=== PATIENT | male | born 1930 | race Caucasian/White ===

== ENCOUNTER 2017-11-13 16:11 | Inpatient (IN) ==
[2017-11-13] MEDS ORDERED: Acetaminophen 325 MG TABLET PO ONE (16:27)
[2017-11-13 16:51] LABS: Bilirubin,Urine Negative (Negative); Blood,Urine Negative (Negative); Clarity,Urine Clear (Clear); Color,Urine Yellow (Yellow); Glucose,Urine (UA) Normal (Normal); Ketones,Urine Negative (Negative); Leukocyte Esterase,Urine Negative (Negative); Nitrite,Urine Negative (Negative); PH,Urine 5.5 pH Units (5.0-8.0); Protein,Urine Trace mg/dL (Neg-Trace); Specific Gravity,Urine 1.019 (1.010-1.025); Urobilinogen,Urine Normal (Normal)
[2017-11-13 16:55] LABS: Bacteria,Urine None Seen per hpf (None-Few); Hyaline Casts,Urine None Seen per lpf (None-Few); Squamous Epithelial Cell,Urine Few per lpf (None-Few); WBC,Urine 0-3 per hpf (0-3)
[2017-11-13 17:04] LABS: Basophils % 0.4 %; Eosinophils # 0.4 K/mcL (0.0-0.6); Eosinophils % 3.2 %; Hematocrit 37.8 % (37.5-50.1); Hemoglobin 13.1 g/dL (12.9-16.9); Immature Granulocytes % 0.4 % (0-4); Immature Platelets 2.5 % (1.1-6.1); Lymphocytes # 1.4 K/mcL (0.6-4.6); Lymphocytes % 12.2 %; Mean Corpuscular HGB Conc 34.7 g/dL (31.6-35.5); Mean Corpuscular Hemoglobin 32.2 pg (28.0-33.3); Mean Corpuscular Volume 92.9 fL (83.0-100.0); Mean Platelet Volume 9.7 fL (9.4-12.4); Monocytes # 0.6 K/mcL (0.0-1.3); Monocytes % 5.4 %; Neutrophils # 8.8 K/mcL (1.6-8.9); Platelet Count 164 K/mcL (140-400); Red Blood Count 4.07 M/mcL (4.19-5.50); Red Cell Distribution Width 13.3 % (11.5-14.5); Segmented Neutrophils % 78.4 %
[2017-11-13 17:15] LABS: Calcium 8.6 mg/dL (8.6-10.3); Potassium 3.9 mEq/L (3.5-5.1)
[2017-11-13] MEDS ORDERED: 0.9 % Sodium Chloride 1,000 ML IVC ONE (17:31)
[2017-11-13] MEDS ORDERED: Levofloxacin 750 MG/150 ML 750 MG/150 ML BAG IVPB ONE (19:26)
[2017-11-13] MEDS ORDERED: Hydrocortisone Sodium Succ 100 MG/2 ML VIAL IVP ONE (19:52)
--- NOTE | 2017-11-13 20:18 | Emergency Department Note ---
Disposition Clinical Impression: Hyponatremia Pneumonia Qualifiers: Pneumonia type: due to unspecified organism Laterality: left Lung location: unspecified part of lung Qualified Code(s): J18.9 - Pneumonia, unspecified organism Chronic kidney disease Qualifiers: Chronic kidney disease stage: unspecified stage Qualified Code(s): N18.9 - Chronic kidney disease, unspecified Disposition: Admitted As Inpatient Condition: Fair Referrals: Leslie Mas MD [Primary Care Provider] - Forms: ED Satisfaction Letter General Adult HPI - General Chief complaint: ED Fever Stated complaint: Flu like symptoms Time Seen by Provider: 11/13/17 16:25 Source: patient Limitations: no limitations Nursing Notes Reviewed: Yes Vital Signs Reviewed: Yes - History of Present Illness HPI Narrative: 87-year-old male with a past medical history prostate cancer and chronic kidney disease. He has had approximate 48 hours of cough and fatigue. He is otherwise fairly healthy and was out shoveling snow discomfort couple of days ago. Family is in the room provides most medical history due to his fatigue. He has had a hospitalization in the past for pneumonia. He does admit to having a fever along with some nausea. Not currently vomiting. Pain Scale: 0 Improves with: nothing Worsens with: nothing Associated symptoms: Reports: denies other symptoms Treatments Prior to Arrival: none - Related Data Home Medications Medication Instructions Recorded Confirmed Isosorbide MONOnitrate (24 HR) 30 mg PO DAILY 05/03/16 11/05/17 [Imdur] Tamsulosin [Flomax] 0.4 mg PO DAILY PRN 06/20/17 11/05/17 Loperamide [Imodium] 2 mg PO DAILY PRN 09/16/17 11/05/17 Cholecalciferol (D-3) [Vitamin D] 1,000 unit PO DAILY 10/07/17 11/05/17 Previous Rx's Medication Instructions Recorded Abiraterone Acetate [Zytiga] 500 mg PO DAILY #60 tablet 10/07/17 predniSONE [PredniSONE] 5 mg PO BID #60 tablet 10/07/17 Allergies Allergy/AdvReac Type Severity Reaction Status Date / Time aspirin Allergy Unknown Diarrhea Verified 11/05/17 14:54 Penicillins Allergy Unknown Rash Verified 11/05/17 14:54 All systems ED: reviewed and negative except as stated. Constitutional: Reports: fever ENT ED: Denies: throat pain Respiratory: Reports: cough, dyspnea Gastrointestinal: Denies: abdominal pain Integumentary: Denies: rash Endocrine: Reports: fatigue Past Medical History - Past Medical History Medical history: Reports: cancer, hypertension, other Surgical history: Reports: non-contributory Psychiatric history: Reports: no psych history - Social History Smoking Status: Never smoker Smokeless Tobacco Status: No Alcohol use: Reports: heavy, recent Drug use: Reports: none Physical Exam - General Limitations: no limitations General appearance: alert, in no apparent distress - Head Head exam: atraumatic - Eye Eye exam: Present: normal appearance, PERRL - ENT ENT exam: normal exam, normal oropharynx - Neck Neck exam: Present: normal inspection - Chest Chest inspection: Present: normal inspection - Respiratory Respiratory exam: Present: other (coarse lung sounds). Absent: respiratory distress - Cardiovascular Cardiovascular exam: Present: regular rate, normal rhythm - Extremities Exam Extremities exam: Present: normal inspection - Neurological Exam Neurological exam: Present: alert - Skin Skin exam: Present: warm, dry Course Course Narrative: He is febrile this did improve after Tylenol. Chest x-ray does show a left lower lobe pneumonia. I have started Levaquin for treatment and obtain cultures. He does have chronic kidney disease but is no worse than normal. Mild hyponatremia from yesterday could be related to his pneumonia. I did go ahead and give stress dose steroids as he is chronically on 5 mg of prednisone. He has been accepted by the hospitalist for admission Vital Signs Temperature 102.8 F H 11/13/17 16:15 Pulse Rate 72 11/13/17 16:15 Respiratory Rate 18 11/13/17 16:15 Blood Pressure 158/90 11/13/17 16:15 O2 Sat by Pulse Oximetry 91 11/13/17 16:15 Temperature 102.1 F H 11/13/17 19:31 Pulse Rate 97 11/13/17 19:31 Respiratory Rate 17 11/13/17 19:31 Blood Pressure 106/55 11/13/17 19:31 O2 Sat by Pulse Oximetry 94 11/13/17 19:50 Oxygen Delivery Oxygen Delivery Room Air Medical Decision Making - Medical Records Medical records reviewed: Yes I reviewed the patient's medical records. - Lab Data Lab results reviewed: Yes I reviewed the patient's lab results. Result diagrams: 11/13/17 16:57 11/13/17 16:57 Lab Results 11/13/17 11/13/17 11/13/17 Range/Units 16:43 16:57 16:57 WBC 11.2 H (4.3-11.1) K/mcL RBC 4.07 L (4.19-5.50) M/mcL Hgb 13.1 (12.9-16.9) g/dL Hct 37.8 (37.5-50.1) % MCV 92.9 (83.0-100.0) fL MCH 32.2 (28.0-33.3) pg MCHC 34.7 (31.6-35.5) g/dL RDW 13.3 (11.5-14.5) % Plt Count 164 (140-400) K/mcL MPV 9.7 (9.4-12.4) fL Immature Gran % 0.4 (0-4) % Seg Neutrophils % 78.4 % Lymphocytes % 12.2 % Monocytes % 5.4 % Eosinophils % 3.2 % Basophils % 0.4 % Neutrophils # 8.8 (1.6-8.9) K/mcL Lymphocytes # 1.4 (0.6-4.6) K/mcL Monocytes # 0.6 (0.0-1.3) K/mcL Eosinophils # 0.4 (0.0-0.6) K/mcL Basophils # 0.0 (0.0-0.2) K/mcL Immature Plt Fraction 2.5 (1.1-6.1) % Sodium 128 L (136-145) mEq/L Potassium 3.9 (3.5-5.1) mEq/L Chloride 97 L (98-107) mEq/L Carbon Dioxide 25 (23-29) mEq/L BUN 30 H (8-23) mg/dL Creatinine 1.97 H (0.70-1.30) mg/dL Est GFR ( Amer) 39 L (> 60) Est GFR (Non-Af Amer) 32 L (> 60) BUN/Creatinine Ratio 15 (6-26) Glucose 132 H (70-105) mg/dL Calculated Osmolality 274 L (280-300) Lactic Acid (0.5-2.2) mmol/L Calcium 8.6 (8.6-10.3) mg/dL Urine Color Yellow (Yellow) Urine Clarity Clear (Clear) Urine pH 5.5 (5.0-8.0) pH Units Ur Specific Bigelow 1.019 (1.010-1.025) Urine Protein Trace (Neg-Trace) mg/dL Urine Glucose (UA) Normal (Normal) mg/dL Urine Ketones Negative (Negative) mg/dL Urine Blood Negative (Negative) Urine Nitrite Negative (Negative) Urine Bilirubin Negative (Negative) Urine Urobilinogen Normal (Normal) mg/dL Ur Leukocyte Esterase Negative (Negative) Urine Microscopic RBC 5-15 H (0-3) per hpf Urine Microscopic WBC 0-3 (0-3) per hpf Ur Squamous Epith Cells Few (None-Few) per lpf Urine Bacteria None Seen (None-Few) per hpf Hyaline Casts None Seen (None-Few) per lpf Ur Culture Indicated? NO (NO) Specimen Rejected 11/13/17 11/13/17 Range/Units 17:26 17:35 WBC (4.3-11.1) K/mcL RBC (4.19-5.50) M/mcL Hgb (12.9-16.9) g/dL Hct (37.5-50.1) % MCV (83.0-100.0) fL MCH (28.0-33.3) pg MCHC (31.6-35.5) g/dL RDW (11.5-14.5) % Plt Count (140-400) K/mcL MPV (9.4-12.4) fL Immature Gran % (0-4) % Seg Neutrophils % % Lymphocytes % % Monocytes % % Eosinophils % % Basophils % % Neutrophils # (1.6-8.9) K/mcL Lymphocytes # (0.6-4.6) K/mcL Monocytes # (0.0-1.3) K/mcL Eosinophils # (0.0-0.6) K/mcL Basophils # (0.0-0.2) K/mcL Immature Plt Fraction (1.1-6.1) % Sodium (136-145) mEq/L Potassium (3.5-5.1) mEq/L Chloride (98-107) mEq/L Carbon Dioxide (23-29) mEq/L BUN (8-23) mg/dL Creatinine (0.70-1.30) mg/dL Est GFR ( Amer) (> 60) Est GFR (Non-Af Amer) (> 60) BUN/Creatinine Ratio (6-26) Glucose (70-105) mg/dL Calculated Osmolality (280-300) Lactic Acid 1.1 (0.5-2.2) mmol/L Calcium (8.6-10.3) mg/dL Urine Color (Yellow) Urine Clarity (Clear) Urine pH (5.0-8.0) pH Units Ur Specific Bigelow (1.010-1.025) Urine Protein (Neg-Trace) mg/dL Urine Glucose (UA) (Normal) mg/dL Urine Ketones (Negative) mg/dL Urine Blood (Negative) Urine Nitrite (Negative) Urine Bilirubin (Negative) Urine Urobilinogen (Normal) mg/dL Ur Leukocyte Esterase (Negative) Urine Microscopic RBC (0-3) per hpf Urine Microscopic WBC (0-3) per hpf Ur Squamous Epith Cells (None-Few) per lpf Urine Bacteria (None-Few) per hpf Hyaline Casts (None-Few) per lpf Ur Culture Indicated? (NO) Specimen Rejected Hemolyzed - Radiology Data Radiology results reviewed: Yes I reviewed the patient's radiology results. - EKG Data EKG #1 EKG attestation: Yes I reviewed and interpreted this EKG. EKG shows normal: sinus rhythm Rate: normal Rhythm: NSR Hamer/QRS: normal When compared to previous EKG there are: no significant changes Interpretation: no acute changes Attestation Statement - Attestation Attestation: I examined this patient and my medical decision-making was reviewed with the Resident Physician, Dr. Borrego. I agree with the documented findings, disposition and treatment plan as described except to the extent set forth below. Patient is an 87-year-old white male who is brought into the emergency department today by his family with concerns for 2 day history of gradually worsening generalized fatigue associated with subjective fevers and chills and occasional dry cough that started last night around dinnertime. Family were concerned because by today patient was having difficulty ambulating and performing his ADLs secondary to his generalized weakness and normally he is fully active and daughter reports he was just out shoveling snow 2 days ago without difficulty. Patient appears clinically dehydrated and very weak on assessment but in no respiratory distress. With patient's physical exam findings as documented. Patient was febrile on arrival remainder of vitals were stable. Patient's EKG showed a normal sinus rhythm without acute ischemia. Patient's laboratory evaluation showed a negative flu swab, and remainder of labs were unremarkable, with the exception of a mild hyponatremia and chronic kidney disease. X-ray shows a left lower lobe pneumonia. Patient received IV fluids and lactate within normal limits. IV antibiotics were initiated and patient will be admitted for further evaluation and management
[2017-11-13] MEDS ORDERED: *HR* HYDROcodone/Acet 5/325 mg TABLET PO PRN (23:33)
[2017-11-13] MEDS ORDERED: Acetaminophen 325 MG TABLET PO PRN (23:33)
[2017-11-13] MEDS ORDERED: Naloxone 0.4 MG/ML INJ IVP PRN (23:33)
[2017-11-13] MEDS ORDERED: Ondansetron 4 MG/2 ML VIAL IVP PRN (23:33)
[2017-11-13] MEDS ORDERED: 0.9 % Sodium Chloride 1,000 ML IVC SCH (23:45)
--- NOTE | 2017-11-13 23:54 | Internal Med History&Physical ---
<Luis Temple - Last Filed: 11/14/17 00:26> Date of Encounter: 11/14/17 Time of Encounter: 22:00 Assessment and Plan (1) Community acquired pneumonia Current visit: Yes Status: Acute Acute CAP. Pt. and daughter report fever of 104F, chills, nausea, and SOB/ dyspnea in past 24 hours. Concern was for possible influenza which was negative. 1-View CXR today shows minimal airspace disease at left lung base, likely atelectasis versus scarring. Small focus of pneumonia remains in the differential. WBC slightly elevated at 11.2 on admission. Reports cough w/ sputum production. Blood cultures x2. Sputum culture. Legionella and strep pneumoniae antigens. IVPB azithromycin 500 mg daily and Rocephin 1,000 mg daily for infection coverage. Benadryl Q6 PRN d/t pts. allergy (rash) to penecillin and possible cross rxn. Supplemental O2 w/titration and SpO2 monitoring. DuoNebs Q6 PRN. Will adjust abx coverage based on culture results. Monitor pt. and f/u labs. Pt. discussed w/Dr. Skaggs who is in agreement w/plan of care. Pt. is at high risk for further morbidity d/t current sx r/t pneumonia dx, acute and generalized weakness, risk factors, and hx. Inpatient. Qualifiers: Laterality: left Lung location: lower lobe of lung Qualified Code(s): J18.1 - Lobar pneumonia, unspecified organism (2) Generalized weakness Current visit: Yes Status: Acute Acute generalized weakness and fatigue over the past 24-48 hours. Pts. daughter reports pt. was able to ambulate several days ago, but currently is too weak to w/o assistance. Falls/safety precautions w/2 assist. Bed rest w/bedside commode w/2 assist. (3) Hyponatremia Current visit: Yes Status: Acute Acute hyponatremia w/sodium of 128 on admission. Pt. receiving 0.9 NS IV fluids @ 75 mL/HR. Monitor sodium status in a.m. labs. (4) HTN (hypertension) Current visit: Yes Status: Chronic Hx of chronic HTN. Monitor pt. and VS. Continue pts. Imdur. Qualifiers: Hypertension type: essential hypertension Qualified Code(s): I10 - Essential (primary) hypertension (5) Prostate CA Current visit: Yes Status: Chronic Hx of chronic prostate cancer dx in 2010. Pt. states he sees Dr. Persaud and currently takes tx of Zytiga and prednisone. Continue Zytiga and increase steroids d/t current pneumonia. Pt. to f/u w/Dr. Persaud as OP (6) CKD (chronic kidney disease) stage 3, GFR 30-59 ml/min Current visit: Yes Status: Chronic Hx of CKD. Currently stage 3 w/GFR of 32 and creatinine of 1.97. Will use IV fluids judiciously and avoid nephrotoxins. Monitor I&O and daily weight. (7) DVT prophylaxis Current visit: Yes Status: Acute Heparin 5,000 units SQ Q12 for DVT prophylaxis. Monitor pt. for signs of bleeding. Internal Medicine - H&P: HPI Chief complaint: Fever/SOB/Dyspnea Admitted From: Emergency Dept Plans for Post Hospital Care: Home History of present illness: Mr. Aviles is a 87 year old male with medical hx of colon cancer in 1999, basal cell skin cancer, prostate cancer in 2010 with current treatment, and hypertension presents from the ED with chief complaint of fever, shortness of breath, generalized weakness and fatigue, and flu-like symptoms for the past 24 hours. Patient reports cough, fever, chills, and nausea but denies vomiting, chest pain, palpitations, headache, changes in vision, unusual bleeding, dizziness, lightheadedness, pre-syncope, or syncope. Past Med Surg Social Fam HX - Past Medical History Source: patient, old records reviewed, obtained from family Medical history: cancer (Colon in 1999, Basal cell skin carcinoma, Prostate in 2010 and receiving tx currently for), hypertension, renal disease, other Psychiatric history: no psych history - Past Surgical History Surgical History: colectomy - Social History Smoking Status: Former smoker Packs per day: 1.5 PPD - Reports quitting in 1970 Smokeless Tobacco Status: No Alcohol use: heavy Drug use: none Current living situation: Home, With Family Activity Level: Independent ambulation, Uses cane/walker Recent Out of Country Travel Within the Last 8 Weeks: No Exposure or Possible Exposure to Illness During Travel: No - Family History Father Race: Family Member Ethnicity: Non- Living Status: Age at : 91 Cause of : Old age Hx Family Cancer: Yes (Basal cell skin cancer) Mother Race: Family Member Ethnicity: Non- Living Status: Age at : 98 Cause of : Old age Hx Family Cancer: Yes (Colon) Sister Race: Family Member Ethnicity: Non- Living Status: Age at : 76 Cause of : [place] Hx Family Cardiac Disorders: Yes (DE) Internal Medicine - H&P: Meds Isosorbide MONOnitrate (24 HR) [Imdur] 30 mg PO DAILY 05/03/16 [History] Tamsulosin [Flomax] 0.4 mg PO DAILY PRN 06/20/17 [History] Loperamide [Imodium] 2 mg PO DAILY PRN 09/16/17 [History] Abiraterone Acetate [Zytiga] 500 mg PO DAILY #60 tablet 10/07/17 [Rx] Cholecalciferol (D-3) [Vitamin D] 1,000 unit PO DAILY 10/07/17 [History] predniSONE [PredniSONE] 5 mg PO BID #60 tablet 10/07/17 [Rx] 3 Allergy/AdvReac Type Severity Reaction Status Date / Time aspirin Allergy Unknown Diarrhea Verified 11/05/17 14:54 Penicillins Allergy Unknown Rash Verified 11/05/17 14:54 All Systems PM: A 10-system review of systems was performed and is negative for pertinent findings except as documented above in the HPI. - Constitutional Constitutional: as per HPI, chills, fatigue, fever(s), weakness, no night sweats - EENT Eyes: no change in vision, no discharge, no pain, no photophobia Ears: no ear discharge, no ear pain, no tinnitus Nose, mouth and throat: no dysphagia, no nasal discharge, no neck pain, no sore throat - Breasts Breasts: as per HPI - Cardiovascular Cardiovascular ROS IM: as per HPI, dyspnea, dyspnea on exertion, no chest pain, no diaphoresis, no lightheadedness, no palpitations, no syncope - Respiratory Respiratory: as per HPI, cough, dyspnea, dyspnea on exertion, no wheezing, no excessive phlegm production - Gastrointestinal Gastrointestinal: as per HPI, nausea, no abdominal pain, no diarrhea, no hematemesis, no hematochezia, no melena, no vomiting - Genitourinary Genitourinary ROS male: as per HPI - Musculoskeletal Musculoskeletal ROS IM: no numbness, no tingling - Integumentary Integumentary IM: no rash, no unusual bruising - Neurological Neurological ROS: no confusion, no convulsions, no focal weakness, no numbness, no tingling, no tremor(s) - Psychiatric Psychiatric: as per HPI - Endocrine Endocrine IM: as per HPI - Hematologic/Lymphatic Hematologic/Lymphatic: no easy bruising - Allergic/Immunologic Allergic/Immunologic: as per HPI - Constitutional Vitals: Temp Pulse Resp BP Pulse Ox 100.6 F H 99 16 116/72 94 11/13/17 22:40 11/13/17 22:00 11/13/17 22:40 11/13/17 22:40 11/13/17 22:00 General appearance: Present: cooperative, A&O X 3, pleasant, no acute distress, answers questions appropriately (Some require repeated attempts. Daughter states this is not his norm.) - Head Head exam: Present: atraumatic, normocephalic - Eye Eye exam: Present: PERRL, conjuntiva pink, sclera anicteric Pupils: Present: PERRL - ENT ENT exam: Present: normal exam - Neck Neck exam general surgery: Present: normal inspection, supple, trachea midline. Absent: lymphadenopathy - Respiratory Respiratory exam: Present: CTAB. Absent: accessory muscle use, rales, rhonchi, wheezes - Cardiovascular Cardiovascular exam: Present: RRR, +S1, +S2. Absent: diastolic murmur, gallop, rubs, systolic murmur - GI/Abdominal GI/Abdominal exam: Present: normal bowel sounds, soft, no peritoneal signs. Absent: distended, tenderness - Rectal Rectal exam: Present: deferred - Additional comments: exam deferred. - Extremities Exam Extremities exam: Present: warm, radial pulses palpable and symmetrical. Absent : calf tenderness, cyanotic, pedal edema - Neurological Exam Neurological exam: Present: CN II-XII intact, oriented X3, no focal deficits. Absent: pronater drift, facial droop, speech deficit - Psychiatric Psychiatric exam: Present: normal affect, normal mood Internal Med - H&P Results - Labs CBC & Chem 7: 11/13/17 16:57 11/13/17 16:57 - EKG Data EKG shows normal: sinus rhythm - EKG Data Prior EKG available for review: yes Interpretation IM: normal EKG EKG comments: 11/14/17 00:02 EKG dated 06/20/17 shows sinus rhythm with possible left atrial enlargement. Artifact. EKG dated 11/13/17 shows sinus rhythm and normal ECG. - Diagnostic Studies Chest x-ray Additional comments: Impressions Chest X-Ray 11/13/17 16:27 IMPRESSION: Minimal airspace disease left lung base, likely atelectasis versus scarring. Small focus of pneumonia remains in the differential. D/ / Robbin Arroyo MD / Robbin Arroyo MD Interpreting Provider: Robbin Arroyo MD <Jonathan Skaggs - Last Filed: 11/14/17 03:37> Date of Encounter: 11/14/17 Time of Encounter: 03:00 - Constitutional Constitutional: chills, fever(s), weakness - Respiratory Respiratory: cough, dyspnea, chest congestion, excessive phlegm production, change in phlegm color - Gastrointestinal Gastrointestinal: nausea Additional comments: decreased oral intake - Constitutional Vitals: Temp Pulse Resp BP Pulse Ox 97.9 F 97 16 115/62 98 11/14/17 00:02 11/14/17 00:02 11/14/17 00:02 11/14/17 00:02 11/14/17 00:02 General appearance: Present: A&O X 3, answers questions appropriately Exam: ill; non-toxic; looks dehydrated; no acute distress - Eye Eye exam: Present: PERRL. Absent: scleral icterus - ENT ENT exam: Present: mucous membranes dry, normal exam - Neck Neck exam general surgery: Present: supple - Respiratory Respiratory exam: Present: rales (left basilar crackles; coarse breath sounds). Absent: chest wall tenderness, respiratory distress, wheezes - Cardiovascular Cardiovascular exam: Present: RRR, +S1, +S2 - GI/Abdominal GI/Abdominal exam: Present: soft. Absent: tenderness - Extremities Exam Extremities exam: Present: warm, radial pulses palpable and symmetrical - Back Exam Back exam: Absent: CVA tenderness (L), CVA tenderness (R) - Skin Skin exam: Present: dry, warm. Absent: rash Internal Med - H&P Results - Labs CBC & Chem 7: 11/14/17 00:40 11/14/17 00:40 Labs: Short CBC 11/14/17 Range/Units 00:40 WBC 12.8 H (4.3-11.1) K/mcL Hgb 12.4 L (12.9-16.9) g/dL Hct 35.7 L (37.5-50.1) % Plt Count 153 (140-400) K/mcL Neutrophils # 11.0 H (1.6-8.9) K/mcL BMP 11/14/17 00:40 Sodium 128 L Potassium 3.9 Chloride 100 Carbon Dioxide 20 L BUN 31 H Creatinine 2.04 H Glucose 146 H Calcium 7.8 L Liver Function 11/14/17 Range/Units 00:40 Total Bilirubin 0.7 (0.3-1.0) mg/dL AST 16 (13-39) Units/L ALT 8 (7-52) Units/L Alkaline Phosphatase 50 (34-104) Units/L Albumin 3.0 L (3.5-5.7) g/dL - EKG Data -: EKG Interpreted by Myself EKG shows normal: sinus rhythm - Diagnostic Studies Chest x-ray Status: image reviewed by me Additional comments: suspect LLL process/infiltrate - Attending Attestation I discussed the patient [place], PMH, ROS, lab data, and exam findings with Marcellus Temple CNP. I then saw and examined patient independently as well. Patient history and exam very suspicious for pneumonia. Additionally, patient has been on chronic prednisone for ~ 6 weeks now. He feels extremely weak, fatigued, and has had some nausea over the last 24 hours. He denies vomiting or diarrhea. He has had very little oral intake, however. I worry that he is becoming adrenally insufficient and could lead to adrenal crisis if not addressed. I therefore requested ER to give Hydrocortisone IV upon admission, and I asked Marcellus to continue stress dose steroids for now in addition to IV antibiotics. Patient and daughter both report feeling much better since Hydrocortisone was given. As he improves from his pneumonia, I recommend slowly weaning his hydrocortisone down to his home Prednisone dosing. If necessary, Oncology will be consulted for any oncologic guidance or concerns. Other than my comments above and noted exam findings, I agree with Marcellus's assessment and plan.
[2017-11-14] MEDS ORDERED: Ipratropium/Albuterol Neb 3 ML IH PRN (00:16)
[2017-11-14 00:48] LABS: Basophils # 0.1 K/mcL (0.0-0.2); Basophils % 0.4 %; Eosinophils # 0.2 K/mcL (0.0-0.6); Eosinophils % 1.3 %; Hematocrit 35.7 % (37.5-50.1); Hemoglobin 12.4 g/dL (12.9-16.9); Immature Granulocytes % 0.5 % (0-4); Immature Platelets 2.6 % (1.1-6.1); Lymphocytes # 0.7 K/mcL (0.6-4.6); Lymphocytes % 5.4 %; Mean Corpuscular HGB Conc 34.7 g/dL (31.6-35.5); Mean Corpuscular Hemoglobin 32.1 pg (28.0-33.3); Mean Corpuscular Volume 92.5 fL (83.0-100.0); Mean Platelet Volume 9.8 fL (9.4-12.4); Monocytes # 0.9 K/mcL (0.0-1.3); Monocytes % 6.9 %; Platelet Count 153 K/mcL (140-400); Red Blood Count 3.86 M/mcL (4.19-5.50); Red Cell Distribution Width 13.4 % (11.5-14.5); Segmented Neutrophils % 85.5 %
[2017-11-14 01:06] LABS: Albumin/Globulin Ratio 1.2 (1.1-2.2); Bilirubin,Total 0.7 mg/dL (0.3-1.0); Calcium 7.8 mg/dL (8.6-10.3); Chol/HDL Ratio 5.3 (0-4.9); Globulin 2.6 g/dL (2.4-3.5); Magnesium 1.2 mg/dL (1.6-2.6); Potassium 3.9 mEq/L (3.5-5.1); Total Protein 5.6 g/dL (6.4-8.9)
[2017-11-14] MEDS: Azithromycin 500 MG in D5% in Water 250 ML IVPB SCH (01:32)
[2017-11-14] MEDS: Hydrocortisone Sodium Succ 100 MG/2 ML VIAL IVP SCH ×3 (01:33→15:40)
[2017-11-14] MEDS: cefTRIAXone 1,000 MG in Water for inj. (sterile) 10 ML IVP SCH (04:19)
[2017-11-14] MEDS: *HR* Heparin 5,000 UNIT/ML VIAL SQ SCH ×2 (04:20→17:30)
[2017-11-14] MEDS ORDERED: ABIRATERONE ACETATE 500 MG PO SCH (09:00)
[2017-11-14] MEDS: ABIRATERONE ACETATE 250 MG PO SCH (15:40)
--- NOTE | 2017-11-14 18:26 | Internal Med Progress Note ---
Date of Encounter: 11/14/17 Time of Encounter: 18:23 - Assessment and plan (1) Community acquired pneumonia Current Visit: Yes Status: Acute Assessment and plan: At home had fever of 104F, chills, nausea, and SOB/dyspnea in past 24 hours. Concern was for possible influenza which was negative. 1-View CXR showed minimal airspace disease at left lung base, likely atelectasis versus scarring. Small focus of pneumonia remains in the differential. WBC slightly elevated at 11.2 on admission. Reports cough w/sputum production. Blood cultures x2. Sputum culture. Legionella and strep pneumoniae antigens. IVPB azithromycin 500 mg daily and Rocephin 1,000 mg daily for infection coverage. Supplemental O2 w/ titration and SpO2 monitoring. DuoNebs Q6 PRN. Will adjust abx coverage based on culture results. Has been on chronic prednisone for 6 weeks. SoluCortef to avoid adrenal crisis. - will slowly wean down to raza ePrednisone dosing. Will consider a Oncology consult if there are any concerns during this process. Qualifiers: Laterality: left Lung location: lower lobe of lung Qualified Code(s): J18.1 - Lobar pneumonia, unspecified organism (2) CKD (chronic kidney disease) stage 3, GFR 30-59 ml/min Current Visit: Yes Status: Chronic Assessment and plan: Reviewing patient's records, it appears his baseline creatinine is 2.1-2.4. Renally dose medications Recheck BMP in AM Fluids are given cautiously (3) Generalized weakness Current Visit: Yes Status: Acute Assessment and plan: PT/OT (4) HTN (hypertension) Current Visit: Yes Status: Chronic Qualifiers: Hypertension type: essential hypertension Qualified Code(s): I10 - Essential (primary) hypertension (5) Hyponatremia Current Visit: Yes Status: Acute Assessment and plan: unchanged at 128. Will continue gentle IV fluid hydration and recheck in AM. If no improvement, may need renal consult. (6) Prostate CA Current Visit: Yes Status: Chronic Assessment and plan: Diagnosed in 2010. Pt. states he sees Dr. Persaud and currently takes tx of Zytiga and prednisone. Continue Zytiga and increase steroids d/t current pneumonia. Pt. to f/u w/Dr. Persaud as OP (7) DVT prophylaxis Current Visit: Yes Status: Acute - Subjective Interval history: No complaints, no acute events. - Constitutional Vitals: Temp Pulse Resp BP Pulse Ox 97.8 F 80 20 168/79 97 11/14/17 15:59 11/14/17 15:59 11/14/17 15:59 11/14/17 15:59 11/14/17 15:59 General appearance: Present: A&O X 3, answers questions appropriately Exam: - Head Head exam: Present: atraumatic, normocephalic - Eye Eye exam: Present: PERRL, conjuntiva pink, sclera anicteric Pupils: Present: PERRL - ENT ENT exam: Present: normal exam - Neck Neck exam general surgery: Present: normal inspection, supple, trachea midline. Absent: lymphadenopathy - Respiratory Respiratory exam: Present: CTAB. Absent: accessory muscle use, rales, rhonchi, wheezes - Cardiovascular Cardiovascular exam: Present: RRR, +S1, +S2. Absent: diastolic murmur, gallop, rubs, systolic murmur - GI/Abdominal GI/Abdominal exam: Present: normal bowel sounds, soft, no peritoneal signs. Absent: distended, tenderness - Rectal Rectal exam: Present: deferred - Additional comments: exam deferred. - Extremities Exam Extremities exam: Present: warm, radial pulses palpable and symmetrical. Absent : calf tenderness, cyanotic, pedal edema - Neurological Exam Neurological exam: Present: CN II-XII intact, oriented X3, no focal deficits. Absent: pronater drift, facial droop, speech deficit - Psychiatric Psychiatric exam: Present: normal affect, normal mood Internal Medicine: Result - Labs CBC & Chem 7: 11/14/17 00:40 11/14/17 00:40 Labs: Short CBC 11/14/17 Range/Units 00:40 WBC 12.8 H (4.3-11.1) K/mcL Hgb 12.4 L (12.9-16.9) g/dL Hct 35.7 L (37.5-50.1) % Plt Count 153 (140-400) K/mcL Neutrophils # 11.0 H (1.6-8.9) K/mcL BMP 11/14/17 00:40 Sodium 128 L Potassium 3.9 Chloride 100 Carbon Dioxide 20 L BUN 31 H Creatinine 2.04 H Glucose 146 H Calcium 7.8 L Liver Function 01/18/18 Range/Units 00:40 Total Bilirubin 0.7 (0.3-1.0) mg/dL AST 16 (13-39) Units/L ALT 8 (7-52) Units/L Alkaline Phosphatase 50 (34-104) Units/L Albumin 3.0 L (3.5-5.7) g/dL Consult Discharge Plan - Plan Referrals: Leslie Mas MD [Primary Care Provider] -
[2017-11-14] MEDS ORDERED: 0.9 % Sodium Chloride 1,000 ML IVC SCH (18:34)
[2017-11-15] MEDS: Azithromycin 500 MG in D5% in Water 250 ML IVPB SCH ×2 (00:43→23:54)
[2017-11-15] MEDS: Hydrocortisone Sodium Succ 100 MG/2 ML VIAL IVP SCH ×2 (00:45→18:30)
[2017-11-15] MEDS: cefTRIAXone 1,000 MG in Water for inj. (sterile) 10 ML IVP SCH (02:56)
[2017-11-15] MEDS: *HR* Heparin 5,000 UNIT/ML VIAL SQ SCH ×2 (06:43→18:30)
[2017-11-15 07:27] LABS: Albumin 3.1 g/dL (3.5-5.7); Albumin/Globulin Ratio 1.1 (1.1-2.2); Bilirubin,Total 0.4 mg/dL (0.3-1.0); Globulin 2.9 g/dL (2.4-3.5); Potassium 3.4 mEq/L (3.5-5.1)
[2017-11-15] MEDS ORDERED: *HR* LORazepam 2 MG/ML VIAL IVP ONE (08:21)
[2017-11-15] MEDS ORDERED: Water for inj. (sterile) 10 ML IV ONE (08:25)
[2017-11-15 08:30] LABS: Basophils % 0.1 %; Hematocrit 37.7 % (37.5-50.1); Hemoglobin 13.1 g/dL (12.9-16.9); Immature Granulocytes % 0.5 % (0-4); Lymphocytes # 0.7 K/mcL (0.6-4.6); Lymphocytes % 6.4 %; Mean Corpuscular HGB Conc 34.7 g/dL (31.6-35.5); Mean Corpuscular Hemoglobin 31.8 pg (28.0-33.3); Mean Corpuscular Volume 91.5 fL (83.0-100.0); Mean Platelet Volume 10.4 fL (9.4-12.4); Monocytes # 0.6 K/mcL (0.0-1.3); Neutrophils # 9.7 K/mcL (1.6-8.9); Platelet Count 174 K/mcL (140-400); Red Blood Count 4.12 M/mcL (4.19-5.50); Red Cell Distribution Width 13.5 % (11.5-14.5)
[2017-11-15] MEDS ORDERED: ABIRATERONE ACETATE 250 MG PO SCH (09:00)
[2017-11-15] MEDS: ABIRATERONE ACETATE 250 MG PO SCH ×2 (14:38→23:56)
--- NOTE | 2017-11-15 22:00 | Internal Med Progress Note ---
Date of Encounter: 11/15/17 Time of Encounter: 11:07 - Assessment and plan (1) Encephalopathy acute Current Visit: Yes Status: Acute Assessment and plan: Likely multifactorial with steroid usage, sepsis, change in enviornment. I verified with BERTRANDA and his daughters, this is indeed not his typical behavior. We have discussed continuous redirecting of patient to allow medical treatment. - Taper steroids - Continue treatment of pneumonia - no longer septic at this moment. Blood cultures pending. - Continue redirecting patient, lights off prior to 9 pm (his usual sleeping schedule) (2) Generalized weakness Current Visit: Yes Status: Acute Assessment and plan: Possibly infection vs adrenal crisis Stress dose with Solu Cortef since he is a chronic steroid patient. Will taper slowly. Continue Rocephin/Azithromycin (3) Sepsis Current Visit: Yes Status: Acute Assessment and plan: Secondary to CAP. 104 F temperature at home, Leukocytosis, occasionally tachycardic (though likely from agitation) Sepsis now resolved, but blood cultures still pending. - Continue Rocephin and Azithromycin - Follow-up respiratory cultures Qualifiers: Sepsis type: sepsis due to unspecified organism Qualified Code(s): A41.9 - Sepsis, unspecified organism (4) Community acquired pneumonia Current Visit: Yes Status: Acute Assessment and plan: At home had fever of 104F, chills, nausea, and SOB/dyspnea in past 24 hours. Concern was for possible influenza which was negative. 1-View CXR showed minimal airspace disease at left lung base, likely atelectasis versus scarring. Small focus of pneumonia remains in the differential. WBC slightly elevated at 11.2 on admission. Reports cough w/sputum production. Blood cultures x2. Sputum culture. Legionella and strep pneumoniae antigens. IVPB azithromycin 500 mg daily and Rocephin 1,000 mg daily for infection coverage. Supplemental O2 w/ titration and SpO2 monitoring. DuoNebs Q6 PRN. Will adjust abx coverage based on culture results. Has been on chronic prednisone for 6 weeks. SoluCortef to avoid adrenal crisis. - will slowly wean down to home Prednisone dosing. Will consider a Oncology consult if there are any concerns during this process. Qualifiers: Laterality: left Lung location: lower lobe of lung Qualified Code(s): J18.1 - Lobar pneumonia, unspecified organism (5) CKD (chronic kidney disease) stage 3, GFR 30-59 ml/min Current Visit: Yes Status: Chronic Assessment and plan: Reviewing patient's records, it appears his baseline creatinine is 2.1-2.4. Renally dose medications Recheck BMP in AM Fluids are given cautiously (6) HTN (hypertension) Current Visit: Yes Status: Chronic Qualifiers: Hypertension type: essential hypertension Qualified Code(s): I10 - Essential (primary) hypertension (7) Hyponatremia Current Visit: Yes Status: Acute Assessment and plan: Resolving with gentle IV fluid hydration and recheck in AM. (8) Prostate CA Current Visit: Yes Status: Chronic Assessment and plan: Diagnosed in 2010. Pt. states he sees Dr. Persaud and currently takes tx of Zytiga and prednisone. Continue Zytiga and increase steroids d/t current pneumonia. Pt. to f/u w/Dr. Persaud as OP (9) DVT prophylaxis Current Visit: Yes Status: Acute - Subjective Interval history: Patient was doing well yesterday. Today this AM patient became more confused and agitated. Please see nursing notes for further detail. Threatened to leave multiple times. Threatened to remove IV multiple times. and two daughters have arrived and are at bedside. Patient still confused but less agitated. - Constitutional Vitals: Temp Pulse Resp BP Pulse Ox 97.8 F 90 16 162/85 97 11/15/17 19:28 11/15/17 19:28 11/15/17 19:28 11/15/17 19:28 11/15/17 19:28 Exam: General appearance: Present: Confused, agitated Exam: - Head Head exam: Present: atraumatic, normocephalic - Eye Eye exam: Present: PERRL, conjuntiva pink, sclera anicteric Pupils: Present: PERRL - ENT ENT exam: Present: normal exam - Neck Neck exam general surgery: Present: normal inspection, supple, trachea midline. Absent: lymphadenopathy - Respiratory Respiratory exam: Present: CTAB. Absent: accessory muscle use, rales, rhonchi, wheezes - Cardiovascular Cardiovascular exam: Present: RRR, +S1, +S2. Absent: diastolic murmur, gallop, rubs, systolic murmur - GI/Abdominal GI/Abdominal exam: Present: normal bowel sounds, soft, no peritoneal signs. Absent: distended, tenderness - Rectal Rectal exam: Present: deferred - Additional comments: exam deferred. - Extremities Exam Extremities exam: Present: warm, radial pulses palpable and symmetrical. Absent : calf tenderness, cyanotic, pedal edema - Neurological Exam Neurological exam: Present: CN II-XII intact, oriented X3, no focal deficits. Absent: pronater drift, facial droop, speech deficit - Psychiatric Psychiatric exam: Present: normal affect, normal mood Internal Medicine: Result - Labs CBC & Chem 7: 11/15/17 06:39 11/15/17 06:39 Labs: Short CBC 11/15/17 Range/Units 06:39 WBC 11.0 (4.3-11.1) K/mcL Hgb 13.1 (12.9-16.9) g/dL Hct 37.7 (37.5-50.1) % Plt Count 174 (140-400) K/mcL Neutrophils # 9.7 H (1.6-8.9) K/mcL BMP 11/15/17 06:39 Sodium 135 L Potassium 3.4 L Chloride 105 Carbon Dioxide 20 L BUN 35 H Creatinine 1.96 H Glucose 158 H Calcium 8.0 L Liver Function 11/15/17 Range/Units 06:39 Total Bilirubin 0.4 (0.3-1.0) mg/dL AST 20 (13-39) Units/L ALT 11 (7-52) Units/L Alkaline Phosphatase 48 (34-104) Units/L Albumin 3.1 L (3.5-5.7) g/dL - VTE Documentation of Mechanical Device: Intermittent pneumatic compression device Consult Discharge Plan - Plan Referrals: Leslie Mas MD [Primary Care Provider] -
[2017-11-16] MEDS: cefTRIAXone 1,000 MG in Water for inj. (sterile) 10 ML IVP SCH (01:13)
[2017-11-16 03:30] LABS: Basophils % 0.3 %; Eosinophils % 0.1 %; Hematocrit 35.5 % (37.5-50.1); Hemoglobin 12.3 g/dL (12.9-16.9); Immature Granulocytes % 0.4 % (0-4); Lymphocytes # 1.1 K/mcL (0.6-4.6); Lymphocytes % 9.6 %; Mean Corpuscular HGB Conc 34.6 g/dL (31.6-35.5); Mean Corpuscular Hemoglobin 32.4 pg (28.0-33.3); Mean Corpuscular Volume 93.4 fL (83.0-100.0); Mean Platelet Volume 9.9 fL (9.4-12.4); Monocytes # 0.5 K/mcL (0.0-1.3); Monocytes % 4.7 %; Neutrophils # 9.9 K/mcL (1.6-8.9); Platelet Count 184 K/mcL (140-400); Red Cell Distribution Width 13.7 % (11.5-14.5); Segmented Neutrophils % 84.9 %
[2017-11-16 03:41] LABS: Albumin 3.1 g/dL (3.5-5.7); Albumin/Globulin Ratio 1.1 (1.1-2.2); Bilirubin,Total 0.4 mg/dL (0.3-1.0); Calcium 7.8 mg/dL (8.6-10.3); Globulin 2.7 g/dL (2.4-3.5); Potassium 3.9 mEq/L (3.5-5.1); Total Protein 5.8 g/dL (6.4-8.9)
[2017-11-16] MEDS: *HR* Heparin 5,000 UNIT/ML VIAL SQ SCH ×2 (06:43→18:09)
--- NOTE | 2017-11-16 06:43 | Electrocardiograph Report ---
[address] [address] Test Date: 2017-11-13 Pat Name: Rajeev Aviles Department: 102 Room: [facility] Gender: M [employer] Administrator: : [id number] Requested By: Александр Garcia Order Number: [id number] Reading MD: Bert Dillon MD Measurements Intervals [place] Rate: 73 P: 7 AR: 165 QRS: -2 QRSD: 74 T: 28 QT: 321 QTc: 348 Interpretive Statements SINUS RHYTHM Electronically Signed On 11-16-2017 6:42:17 EST by Bert Dillon MD
[2017-11-16] MEDS: Hydrocortisone Sodium Succ 100 MG/2 ML VIAL IVP SCH ×4 (06:44→23:35)
--- NOTE | 2017-11-16 18:31 | Internal Med Progress Note ---
Date of Encounter: 11/16/17 Time of Encounter: 18:29 - Assessment and plan (1) Encephalopathy acute Current Visit: Yes Status: Acute Assessment and plan: Likely multifactorial with steroid usage, sepsis, change in enviornment. I verified with BERTRANDA and his daughters, this is indeed not his typical behavior. We have discussed continuous redirecting of patient to allow medical treatment. - Taper steroids - Continue treatment of pneumonia - no longer septic at this moment. Blood cultures pending. - Continue redirecting patient, lights off prior to 9 pm (his usual sleeping schedule) Resolved (2) Generalized weakness Current Visit: Yes Status: Acute Assessment and plan: Possibly infection vs adrenal crisis Stress dose with Solu Cortef since he is a chronic steroid patient. Will taper slowly. Continue Rocephin/Azithromycin (3) Sepsis Current Visit: Yes Status: Acute Assessment and plan: Secondary to CAP. 104 F temperature at home, Leukocytosis, occasionally tachycardic (though likely from agitation) Sepsis now resolved, but blood cultures still pending. - Continue Rocephin and Azithromycin - Follow-up respiratory cultures Qualifiers: Sepsis type: sepsis due to unspecified organism Qualified Code(s): A41.9 - Sepsis, unspecified organism (4) Community acquired pneumonia Current Visit: Yes Status: Acute Assessment and plan: At home had fever of 104F, chills, nausea, and SOB/dyspnea in past 24 hours. Concern was for possible influenza which was negative. 1-View CXR showed minimal airspace disease at left lung base, likely atelectasis versus scarring. Small focus of pneumonia remains in the differential. WBC slightly elevated at 11.2 on admission. Reports cough w/sputum production. Blood cultures x2. Sputum culture. Legionella and strep pneumoniae antigens. IVPB azithromycin 500 mg daily and Rocephin 1,000 mg daily for infection coverage. Supplemental O2 w/ titration and SpO2 monitoring. DuoNebs Q6 PRN. Will adjust abx coverage based on culture results. Has been on chronic prednisone for 6 weeks. SoluCortef to avoid adrenal crisis. - will slowly wean down to home Prednisone dosing. Will consider a Oncology consult if there are any concerns during this process. Qualifiers: Laterality: left Lung location: lower lobe of lung Qualified Code(s): J18.1 - Lobar pneumonia, unspecified organism (5) CKD (chronic kidney disease) stage 3, GFR 30-59 ml/min Current Visit: Yes Status: Chronic Assessment and plan: Reviewing patient's records, it appears his baseline creatinine is 2.1-2.4. Renally dose medications Recheck BMP in AM Fluids are given cautiously (6) HTN (hypertension) Current Visit: Yes Status: Chronic Qualifiers: Hypertension type: essential hypertension Qualified Code(s): I10 - Essential (primary) hypertension (7) Hyponatremia Current Visit: Yes Status: Acute Assessment and plan: Resolving with gentle IV fluid hydration and recheck in AM. (8) Prostate CA Current Visit: Yes Status: Chronic Assessment and plan: Diagnosed in 2010. Pt. states he sees Dr. Persaud and currently takes tx of Zytiga and prednisone. Continue Zytiga and increase steroids d/t current pneumonia. Pt. to f/u w/Dr. Persaud as OP (9) DVT prophylaxis Current Visit: Yes Status: Acute - Subjective Interval history: 11/15: patient became more confused and agitated. Please see nursing notes for further detail. Threatened to leave multiple times. Threatened to remove IV multiple times. and two daughters have arrived and are at bedside. Patient still confused but less agitated. 11/16: calm and cooperative, willing to stay and finish treatment. - Constitutional Vitals: Temp Pulse Resp BP Pulse Ox 97.9 F 61 14 132/74 97 11/16/17 16:28 11/16/17 16:28 11/16/17 16:28 11/16/17 16:28 11/16/17 16:28 General appearance: Present: A&O X 3, answers questions appropriately - Head Head exam: Present: atraumatic, normocephalic - Eye Eye exam: Present: PERRL, conjuntiva pink, sclera anicteric Pupils: Present: PERRL - Neck Neck exam general surgery: Present: supple, trachea midline. Absent: lymphadenopathy - Respiratory Respiratory exam: Present: CTAB. Absent: accessory muscle use, rales, rhonchi, wheezes - Cardiovascular Cardiovascular exam: Present: RRR, +S1, +S2. Absent: diastolic murmur, gallop, rubs, systolic murmur - GI/Abdominal GI/Abdominal exam: Present: normal bowel sounds, soft, no peritoneal signs. Absent: distended, tenderness - Extremities Exam Extremities exam: Present: warm, radial pulses palpable and symmetrical. Absent : calf tenderness, cyanotic, pedal edema - Neurological Exam Neurological exam: Present: CN II-XII intact, oriented X3, no focal deficits. Absent: pronater drift, facial droop, speech deficit - Skin Skin exam: Present: dry, intact Internal Medicine: Result - Labs CBC & Chem 7: 11/16/17 03:12 11/16/17 03:12 Labs: Short CBC 11/16/17 Range/Units 03:12 WBC 11.6 H (4.3-11.1) K/mcL Hgb 12.3 L (12.9-16.9) g/dL Hct 35.5 L (37.5-50.1) % Plt Count 184 (140-400) K/mcL Neutrophils # 9.9 H (1.6-8.9) K/mcL BMP 11/16/17 03:12 Sodium 137 Potassium 3.9 Chloride 107 Carbon Dioxide 23 BUN 33 H Creatinine 2.05 H Glucose 142 H Calcium 7.8 L Liver Function 11/16/17 Range/Units 03:12 Total Bilirubin 0.4 (0.3-1.0) mg/dL AST 22 (13-39) Units/L ALT 11 (7-52) Units/L Alkaline Phosphatase 44 (34-104) Units/L Albumin 3.1 L (3.5-5.7) g/dL - VTE Documentation of Mechanical Device: Intermittent pneumatic compression device Consult Discharge Plan - Plan Referrals: Leslie Mas MD [Primary Care Provider] -
[2017-11-16] MEDS: Azithromycin 500 MG in D5% in Water 250 ML IVPB SCH (23:34)
[2017-11-16] MEDS: ABIRATERONE ACETATE 250 MG PO SCH (23:51)
[2017-11-17] MEDS ORDERED: Azithromycin 500 MG VIAL IVPB ONE (00:04)
[2017-11-17] MEDS: cefTRIAXone 1,000 MG in Water for inj. (sterile) 10 ML IVP SCH (01:17)
[2017-11-17 05:08] LABS: Basophils % 0.2 %; Eosinophils % 0.2 %; Hematocrit 32.5 % (37.5-50.1); Hemoglobin 11.3 g/dL (12.9-16.9); Immature Granulocytes % 0.4 % (0-4); Lymphocytes # 0.9 K/mcL (0.6-4.6); Lymphocytes % 9.8 %; Mean Corpuscular HGB Conc 34.8 g/dL (31.6-35.5); Mean Corpuscular Hemoglobin 32.2 pg (28.0-33.3); Mean Corpuscular Volume 92.6 fL (83.0-100.0); Mean Platelet Volume 10.2 fL (9.4-12.4); Monocytes # 0.6 K/mcL (0.0-1.3); Neutrophils # 7.9 K/mcL (1.6-8.9); Platelet Count 169 K/mcL (140-400); Red Blood Count 3.51 M/mcL (4.19-5.50); Red Cell Distribution Width 13.6 % (11.5-14.5); Segmented Neutrophils % 83.4 %
[2017-11-17 05:12] LABS: Albumin 2.9 g/dL (3.5-5.7); Albumin/Globulin Ratio 1.2 (1.1-2.2); Bilirubin,Total 0.4 mg/dL (0.3-1.0); Calcium 7.8 mg/dL (8.6-10.3); Globulin 2.5 g/dL (2.4-3.5); Potassium 3.7 mEq/L (3.5-5.1); Total Protein 5.4 g/dL (6.4-8.9)
[2017-11-17] MEDS: Hydrocortisone Sodium Succ 100 MG/2 ML VIAL IVP SCH ×2 (06:55→18:01)
[2017-11-17] MEDS: *HR* Heparin 5,000 UNIT/ML VIAL SQ SCH ×2 (06:55→18:02)
[2017-11-17] MEDS: ABIRATERONE ACETATE 250 MG PO SCH (22:40)
[2017-11-17] MEDS: Azithromycin 500 MG in D5% in Water 250 ML IVPB SCH (22:41)
--- NOTE | 2017-11-18 00:08 | Internal Med Progress Note ---
Date of Encounter: 11/18/17 Time of Encounter: 13:06 - Assessment and plan (1) Generalized weakness Current Visit: Yes Status: Acute Assessment and plan: Possibly infection vs adrenal crisis Stress dose with Solu Cortef since he is a chronic steroid patient. Will taper slowly. Continue Rocephin/Azithromycin (2) Sepsis Current Visit: Yes Status: Acute Assessment and plan: Secondary to CAP. 104 F temperature at home, Leukocytosis, occasionally tachycardic (though likely from agitation) Sepsis now resolved, but blood cultures still pending. - Continue Rocephin and Azithromycin - Follow-up respiratory cultures Qualifiers: Sepsis type: sepsis due to unspecified organism Qualified Code(s): A41.9 - Sepsis, unspecified organism (3) Community acquired pneumonia Current Visit: Yes Status: Acute Assessment and plan: At home had fever of 104F, chills, nausea, and SOB/dyspnea in past 24 hours. Concern was for possible influenza which was negative. 1-View CXR showed minimal airspace disease at left lung base, likely atelectasis versus scarring. Small focus of pneumonia remains in the differential. WBC slightly elevated at 11.2 on admission. Reports cough w/sputum production. Blood cultures x2. Sputum culture. Legionella and strep pneumoniae antigens. IVPB azithromycin 500 mg daily and Rocephin 1,000 mg daily for infection coverage. Supplemental O2 w/ titration and SpO2 monitoring. DuoNebs Q6 PRN. Will adjust abx coverage based on culture results. Has been on chronic prednisone for 6 weeks. SoluCortef to avoid adrenal crisis. - will slowly wean down to home Prednisone dosing. Will consider a Oncology consult if there are any concerns during this process. Qualifiers: Laterality: left Lung location: lower lobe of lung Qualified Code(s): J18.1 - Lobar pneumonia, unspecified organism (4) Encephalopathy acute Current Visit: Yes Status: Resolved Assessment and plan: Likely multifactorial with steroid usage, sepsis, change in enviornment. I verified with POA and his daughters, this is indeed not his typical behavior. We have discussed continuous redirecting of patient to allow medical treatment. - Taper steroids - Continue treatment of pneumonia - no longer septic at this moment. Blood cultures pending. - Continue redirecting patient, lights off prior to 9 pm (his usual sleeping schedule) Resolved (5) CKD (chronic kidney disease) stage 3, GFR 30-59 ml/min Current Visit: Yes Status: Chronic Assessment and plan: Reviewing patient's records, it appears his baseline creatinine is 2.1-2.4. Renally dose medications Recheck BMP in AM Fluids are given cautiously (6) HTN (hypertension) Current Visit: Yes Status: Chronic Qualifiers: Hypertension type: essential hypertension Qualified Code(s): I10 - Essential (primary) hypertension (7) Hyponatremia Current Visit: Yes Status: Acute Assessment and plan: Resolving with gentle IV fluid hydration and recheck in AM. (8) Prostate CA Current Visit: Yes Status: Chronic Assessment and plan: Diagnosed in 2010. Pt. states he sees Dr. Persaud and currently takes tx of Zytiga and prednisone. Continue Zytiga and increase steroids d/t current pneumonia. Pt. to f/u w/Dr. Persaud as OP (9) DVT prophylaxis Current Visit: Yes Status: Acute - Subjective Interval history: 11/15: patient became more confused and agitated. Please see nursing notes for further detail. Threatened to leave multiple times. Threatened to remove IV multiple times. and two daughters have arrived and are at bedside. Patient still confused but less agitated. 11/16: calm and cooperative, willing to stay and finish treatment. Since then has been cooperative - Constitutional Vitals: Temp Pulse Resp BP Pulse Ox 97.7 F 62 16 159/92 97 11/17/17 19:20 11/17/17 19:20 11/17/17 19:20 11/17/17 19:20 11/17/17 19:20 General appearance: Present: A&O X 3, answers questions appropriately - Head Head exam: Present: atraumatic, normocephalic - Eye Eye exam: Present: PERRL, conjuntiva pink, sclera anicteric Pupils: Present: PERRL - Neck Neck exam general surgery: Present: supple, trachea midline. Absent: lymphadenopathy - Respiratory Respiratory exam: Present: CTAB. Absent: accessory muscle use, rales, rhonchi, wheezes - Cardiovascular Cardiovascular exam: Present: RRR, +S1, +S2. Absent: diastolic murmur, gallop, rubs, systolic murmur - GI/Abdominal GI/Abdominal exam: Present: normal bowel sounds, soft, no peritoneal signs. Absent: distended, tenderness - Extremities Exam Extremities exam: Present: warm, radial pulses palpable and symmetrical. Absent : calf tenderness, cyanotic, pedal edema - Neurological Exam Neurological exam: Present: CN II-XII intact, oriented X3, no focal deficits. Absent: pronater drift, facial droop, speech deficit - Skin Skin exam: Present: dry, intact Internal Medicine: Result - Labs CBC & Chem 7: 11/17/17 04:38 11/17/17 04:38 Labs: Short CBC 11/17/17 Range/Units 04:38 WBC 9.5 (4.3-11.1) K/mcL Hgb 11.3 L (12.9-16.9) g/dL Hct 32.5 L (37.5-50.1) % Plt Count 169 (140-400) K/mcL Neutrophils # 7.9 (1.6-8.9) K/mcL BMP 11/17/17 04:38 Sodium 137 Potassium 3.7 Chloride 105 Carbon Dioxide 23 BUN 40 H Creatinine 2.31 H Glucose 152 H Calcium 7.8 L Liver Function 11/17/17 Range/Units 04:38 Total Bilirubin 0.4 (0.3-1.0) mg/dL AST 18 (13-39) Units/L ALT 12 (7-52) Units/L Alkaline Phosphatase 38 (34-104) Units/L Albumin 2.9 L (3.5-5.7) g/dL - VTE Documentation of Mechanical Device: Intermittent pneumatic compression device Consult Discharge Plan - Plan Referrals: Leslie Mas MD [Primary Care Provider] -
[2017-11-18] MEDS: cefTRIAXone 1,000 MG in Water for inj. (sterile) 10 ML IVP SCH (01:40)
[2017-11-18 05:35] LABS: Basophils % 0.2 %; Eosinophils # 0.1 K/mcL (0.0-0.6); Hematocrit 32.3 % (37.5-50.1); Hemoglobin 11.3 g/dL (12.9-16.9); Immature Granulocytes % 0.3 % (0-4); Lymphocytes # 1.5 K/mcL (0.6-4.6); Lymphocytes % 16.4 %; Mean Corpuscular Hemoglobin 32.1 pg (28.0-33.3); Mean Corpuscular Volume 91.8 fL (83.0-100.0); Mean Platelet Volume 10.4 fL (9.4-12.4); Monocytes # 0.8 K/mcL (0.0-1.3); Monocytes % 8.2 %; Neutrophils # 6.7 K/mcL (1.6-8.9); Platelet Count 173 K/mcL (140-400); Red Blood Count 3.52 M/mcL (4.19-5.50); Red Cell Distribution Width 13.6 % (11.5-14.5); Segmented Neutrophils % 73.9 %
[2017-11-18 05:52] LABS: Albumin 2.9 g/dL (3.5-5.7); Albumin/Globulin Ratio 1.3 (1.1-2.2); Bilirubin,Total 0.5 mg/dL (0.3-1.0); Calcium 7.8 mg/dL (8.6-10.3); Globulin 2.3 g/dL (2.4-3.5); Potassium 3.4 mEq/L (3.5-5.1); Total Protein 5.2 g/dL (6.4-8.9)
[2017-11-18] MEDS: *HR* Heparin 5,000 UNIT/ML VIAL SQ SCH (06:29)
[2017-11-18] MEDS: Hydrocortisone Sodium Succ 100 MG/2 ML VIAL IVP SCH (06:29)
[2017-11-18] MEDS ORDERED: Isosorbide MONOnitrate (24 HR) 30 MG TAB.ER.24H PO SCH (09:00)
[2017-11-18 09:49] LABS: Mycoplasma pneumoniae IgG 0.04 U/L (<=0.09)
--- NOTE | 2017-11-18 11:32 | Discharge Summary ---
Date of Encounter: 11/18/17 Time of Encounter: 11:30 - Discharge Diagnosis (1) Generalized weakness Priority: Primary Status: Acute (2) Sepsis Priority: Secondary Status: Acute Qualifiers: Sepsis type: sepsis due to unspecified organism Qualified Code(s): A41.9 - Sepsis, unspecified organism (3) Community acquired pneumonia Priority: Secondary Status: Acute Qualifiers: Laterality: left Lung location: lower lobe of lung Qualified Code(s): J18.1 - Lobar pneumonia, unspecified organism (4) Encephalopathy acute Priority: Secondary Status: Resolved (5) CKD (chronic kidney disease) stage 3, GFR 30-59 ml/min Priority: Secondary Status: Chronic (6) HTN (hypertension) Priority: Secondary Status: Chronic Qualifiers: Hypertension type: essential hypertension Qualified Code(s): I10 - Essential (primary) hypertension (7) Hyponatremia Priority: Secondary Status: Acute (8) Prostate CA Priority: Secondary Status: Chronic (9) Adrenal insufficiency Priority: Secondary Status: Acute (10) DVT prophylaxis Priority: Secondary Status: Acute - Discharge Medications Home Medications: Isosorbide MONOnitrate (24 HR) [Imdur] 30 mg PO DAILY 05/03/16 [History] Tamsulosin [Flomax] 0.4 mg PO DAILY PRN 06/20/17 [History] Loperamide [Imodium] 2 mg PO DAILY PRN 09/16/17 [History] Abiraterone Acetate [Zytiga] 500 mg PO DAILY #60 tablet 10/07/17 [Rx] Cholecalciferol (D-3) [Vitamin D] 1,000 unit PO DAILY 10/07/17 [History] predniSONE [PredniSONE] 5 mg PO BID #60 tablet 10/07/17 [Rx] predniSONE [PredniSONE] See Taper PO DAILY #15 tablet 11/18/17 [Rx] Allergies/Adverse Reactions: 3 Allergy/AdvReac Type Severity Reaction Status Date / Time aspirin Allergy Unknown Diarrhea Verified 11/05/17 14:54 Penicillins Allergy Unknown Rash Verified 11/05/17 14:54 Date of admission: 11/13/17 23:33 Primary care physician: Leslie Farrell-Replaced By [facility] Discharging clinician: Wagner Bravo - Patient Status Disposition: Home, Self-Care Condition: Fair Functional capacity at discharge: independent ambulation Overall status at discharge: patient is back to baseline - Discharge Instructions Follow Up With: Leslie Mas MD [Primary Care Provider] - - Diet and Activity Activity: increase activity as tolerated Diet: advance to your usual diet Hospital course: Mr. Aviles is a 87 year old male with medical hx of colon cancer in 1999, basal cell skin cancer, prostate cancer in 2010 with current treatment, and hypertension presents from the ED with chief complaint of fever, shortness of breath, generalized weakness and fatigue, and flu-like symptoms for the past 24 hours. He is on chronic Prednisone for 6 weeks now. Patient reports cough, fever, chills, and nausea. A chest x-ray showed possible small focus of pneumonia. Patient was treated for sepsis from pneumonia and adrenal insufficiency. He was started on Rocephin and azithromycin, and was started on Solu Cortef with tapering. Patient clinically improved dramatically. Solu- Cortef was tapered without difficulty. He completed 5 days of Rocephin and azithromycin. Patient had symptoms improved and discharged home to complete a Prednisone taper and doxycycline. - Time Spent with Patient Total time spent providing and/or coordinating discharge services: - Constitutional Vitals: Temp Pulse Resp BP Pulse Ox 97.7 F 56 15 131/71 96 11/18/17 06:48 11/18/17 06:48 11/18/17 06:48 11/18/17 06:48 11/18/17 06:48 Exam: General appearance: Present: A&O X 3, answers questions appropriately - Head Head exam: Present: atraumatic, normocephalic - Eye Eye exam: Present: PERRL, conjuntiva pink, sclera anicteric Pupils: Present: PERRL - Neck Neck exam general surgery: Present: supple, trachea midline. Absent: lymphadenopathy - Respiratory Respiratory exam: Present: CTAB. Absent: accessory muscle use, rales, rhonchi, wheezes - Cardiovascular Cardiovascular exam: Present: RRR, +S1, +S2. Absent: diastolic murmur, gallop, rubs, systolic murmur - GI/Abdominal GI/Abdominal exam: Present: normal bowel sounds, soft, no peritoneal signs. Absent: distended, tenderness - Extremities Exam Extremities exam: Present: warm, radial pulses palpable and symmetrical. Absent : calf tenderness, cyanotic, pedal edema - Neurological Exam Neurological exam: Present: CN II-XII intact, oriented X3, no focal deficits. Absent: pronater drift, facial droop, speech deficit - Skin Skin exam: Present: dry, intact - VTE Documentation of Mechanical Device: Intermittent pneumatic compression device
[2017-11-18 12:08] VITALS: BP 138/75
[2017-11-18] MEDS ORDERED: predniSONE 20 MG TABLET PO ONE (12:56)
== END 2017-11-18 13:07 | disposition home or self-care (01) | DRG 871 ==
LOC: 3NENU 16:11 → EMEROO 16:11 → 3NENU 22:41 → 3ANU 11-18 10:33
PROVIDERS: ADMIT Pediatrics; ATTEND Hospitalist

== ENCOUNTER 2017-12-14 21:33 | Observation (INO) ==
[2017-12-14] MEDS ORDERED: 0.9 % Sodium Chloride 1,000 ML IVC ONE (22:06)
--- NOTE | 2017-12-14 22:19 | Emergency Department Note ---
Disposition Clinical Impression: Influenza, Hypoxia Disposition: Admitted As Inpatient Condition: Good General Adult HPI - General Chief complaint: ED Weakness Stated complaint: General Weakness Time Seen by Provider: 12/14/17 21:51 Source: patient, EMS Limitations: no limitations Nursing Notes Reviewed: Yes Vital Signs Reviewed: Yes - History of Present Illness HPI Narrative: 87 y/o male w/ PMH of metastatic prostate cancer, hx of colon cancer, and CKD. Follows at the cancer center and with Dr Greenfield. He presents due to generalized fatigue and occasional cough. He states he does feel similar to when he had pneumonia about 1 month ago and was admitted. However, he denies a significant cough (but does admit to feeling like he has something that he can' t cough up). He denies swelling, new rashes, abdominal pain, difficulty with bowel movements or urination, stiff neck, AMS, or other new symptoms. EMS reports his SPO2 was in the low 90's. No hx of lung disease (aside from pneumonia). He did not know that he had a fever. Does admit to nasal congestion. Pain Scale: 0 Consistency: constant Improves with: nothing Worsens with: nothing Associated symptoms: Reports: denies other symptoms Treatments Prior to Arrival: none - Related Data Home Medications Medication Instructions Recorded Confirmed Isosorbide MONOnitrate (24 HR) 30 mg PO DAILY 05/03/16 12/03/17 [Imdur] Tamsulosin [Flomax] 0.4 mg PO DAILY PRN 06/20/17 12/03/17 Loperamide [Imodium] 2 mg PO DAILY PRN 09/16/17 12/03/17 Cholecalciferol (D-3) [Vitamin D] 1,000 unit PO DAILY 10/07/17 12/03/17 Previous Rx's Medication Instructions Recorded Abiraterone Acetate [Zytiga] 500 mg PO DAILY #60 tablet 10/07/17 predniSONE [PredniSONE] 5 mg PO BID #60 tablet 10/07/17 Allergies Allergy/AdvReac Type Severity Reaction Status Date / Time aspirin Allergy Unknown Diarrhea Verified 12/03/17 11:24 Penicillins Allergy Unknown Rash Verified 12/03/17 11:24 All systems ED: reviewed and negative except as stated. Review of Systems: As Per HPI ENT ED: Denies: throat pain Cardiovascular: Denies: chest pain Musculoskeletal: Denies: back pain Neurological: Denies: headache Endocrine: Reports: fatigue Past Medical History - Past Medical History Medical history: Reports: cancer, hypertension, renal disease, other Surgical history: Reports: colectomy Psychiatric history: Reports: no psych history - Social History Smoking Status: Former smoker Smokeless Tobacco Status: No Alcohol use: Reports: heavy, recent Drug use: Reports: none Physical Exam - General Limitations: no limitations General appearance: alert, in no apparent distress - Head Head exam: atraumatic - Eye Eye exam: Present: normal appearance, PERRL - ENT ENT exam: normal exam, normal oropharynx - Neck Neck exam: Present: normal inspection - Chest Chest inspection: Present: normal inspection - Respiratory Respiratory exam: Present: normal lung sounds bilaterally. Absent: respiratory distress - Cardiovascular Cardiovascular exam: Present: normal rhythm, tachycardia - Abdominal Exam Abdominal exam: Present: soft, Non-Tender - Extremities Exam Extremities exam: Present: normal inspection. Absent: pedal edema - Neurological Exam Neurological exam: Present: alert, oriented X3 - Psychiatric Psychiatric exam: Present: normal affect, normal mood - Skin Skin exam: Present: warm, dry Course Course Narrative: Flu positive. Labwork looking good aside from mild hyponatremia. He has a mild O2 requirement, but does not have O2 at home. Will admit due to his age w / influenza positive and O2 requirement. Tamiflu ordered. Vital Signs Temperature 100.7 F H 12/14/17 21:35 Pulse Rate 113 12/14/17 21:35 Respiratory Rate 16 12/14/17 21:35 Blood Pressure 167/83 12/14/17 21:35 O2 Sat by Pulse Oximetry 95 12/14/17 21:35 Temperature 100.7 F H 12/14/17 21:35 Pulse Rate 108 12/14/17 23:30 Respiratory Rate 16 12/14/17 21:35 Blood Pressure 136/76 12/14/17 23:30 O2 Sat by Pulse Oximetry 93 12/14/17 23:30 Oxygen Delivery Oxygen Delivery Nasal Cannula Medical Decision Making - Medical Records Medical records reviewed: Yes I reviewed the patient's medical records. - Lab Data Lab results reviewed: Yes I reviewed the patient's lab results. Result diagrams: 12/14/17 22:33 12/14/17 22:33 Lab Results 12/14/17 12/14/17 12/14/17 Range/Units 22:15 22:33 22:33 WBC 8.0 (4.3-11.1) K/mcL RBC 3.87 L (4.19-5.50) M/mcL Hgb 12.6 L (12.9-16.9) g/dL Hct 36.7 L (37.5-50.1) % MCV 94.8 (83.0-100.0) fL MCH 32.6 (28.0-33.3) pg MCHC 34.3 (31.6-35.5) g/dL RDW 13.6 (11.5-14.5) % Plt Count 209 (140-400) K/mcL MPV 9.4 (9.4-12.4) fL Immature Gran % 0.4 (0-4) % Seg Neutrophils % 72.5 % Lymphocytes % 15.8 % Monocytes % 10.0 % Eosinophils % 0.9 % Basophils % 0.4 % Neutrophils # 5.8 (1.6-8.9) K/mcL Lymphocytes # 1.3 (0.6-4.6) K/mcL Monocytes # 0.8 (0.0-1.3) K/mcL Eosinophils # 0.1 (0.0-0.6) K/mcL Basophils # 0.0 (0.0-0.2) K/mcL PT 11.1 (9.4-12.1) Seconds INR 1.0 APTT 26.7 (26.0-36.0) Seconds Sodium (136-145) mEq/L Potassium (3.5-5.1) mEq/L Chloride (98-107) mEq/L Carbon Dioxide (23-29) mEq/L BUN (8-23) mg/dL Creatinine (0.70-1.30) mg/dL Est GFR ( Amer) (> 60) Est GFR (Non-Af Amer) (> 60) BUN/Creatinine Ratio (6-26) Glucose (70-105) mg/dL Calculated Osmolality (280-300) Lactic Acid (0.5-2.2) mmol/L Calcium (8.6-10.3) mg/dL Phosphorus (2.7-4.5) mg/dL Magnesium (1.6-2.6) mg/dL Total Bilirubin (0.3-1.0) mg/dL Direct Bilirubin (0.0-0.2) mg/dL Indirect Bilirubin (0.0-1.2) mg/dL AST (13-39) Units/L ALT (7-52) Units/L Alkaline Phosphatase (34-104) Units/L Troponin I (< 0.04) ng/mL Serum Total Protein (6.4-8.9) g/dL Albumin (3.5-5.7) g/dL Globulin (2.4-3.5) g/dL Albumin/Globulin Ratio (1.1-2.2) Urine Color Yellow (Yellow) Urine Clarity Clear (Clear) Urine pH 7.0 (5.0-8.0) pH Units Ur Specific [place] 1.011 (1.010-1.025) Urine Protein 30 H (Neg-Trace) mg/dL Urine Glucose (UA) Normal (Normal) mg/dL Urine Ketones Negative (Negative) mg/dL Urine Blood Trace H (Negative) Urine Nitrite Negative (Negative) Urine Bilirubin Negative (Negative) Urine Urobilinogen Normal (Normal) mg/dL Ur Leukocyte Esterase Negative (Negative) Urine Microscopic RBC 0-3 (0-3) per hpf Urine Microscopic WBC 0-3 (0-3) per hpf Ur Squamous Epith Cells Few (None-Few) per lpf Urine Bacteria None Seen (None-Few) per hpf Hyaline Casts None Seen (None-Few) per lpf Ur Culture Indicated? NO (NO) 12/14/17 12/14/17 12/14/17 Range/Units 22:33 22:33 22:33 WBC (4.3-11.1) K/mcL RBC (4.19-5.50) M/mcL Hgb (12.9-16.9) g/dL Hct (37.5-50.1) % MCV (83.0-100.0) fL MCH (28.0-33.3) pg MCHC (31.6-35.5) g/dL RDW (11.5-14.5) % Plt Count (140-400) K/mcL MPV (9.4-12.4) fL Immature Gran % (0-4) % Seg Neutrophils % % Lymphocytes % % Monocytes % % Eosinophils % % Basophils % % Neutrophils # (1.6-8.9) K/mcL Lymphocytes # (0.6-4.6) K/mcL Monocytes # (0.0-1.3) K/mcL Eosinophils # (0.0-0.6) K/mcL Basophils # (0.0-0.2) K/mcL PT (9.4-12.1) Seconds INR APTT (26.0-36.0) Seconds Sodium 130 L (136-145) mEq/L Potassium 3.7 (3.5-5.1) mEq/L Chloride 97 L (98-107) mEq/L Carbon Dioxide 23 (23-29) mEq/L BUN 24 H (8-23) mg/dL Creatinine 2.06 H (0.70-1.30) mg/dL Est GFR ( Amer) 37 L (> 60) Est GFR (Non-Af Amer) 31 L (> 60) BUN/Creatinine Ratio 12 (6-26) Glucose 98 (70-105) mg/dL Calculated Osmolality 274 L (280-300) Lactic Acid 1.2 (0.5-2.2) mmol/L Calcium 8.6 (8.6-10.3) mg/dL Phosphorus 2.9 (2.7-4.5) mg/dL Magnesium 1.4 L (1.6-2.6) mg/dL Total Bilirubin 0.8 (0.3-1.0) mg/dL Direct Bilirubin 0.1 (0.0-0.2) mg/dL Indirect Bilirubin 0.7 (0.0-1.2) mg/dL AST 24 (13-39) Units/L ALT 19 (7-52) Units/L Alkaline Phosphatase 56 (34-104) Units/L Troponin I < 0.03 (< 0.04) ng/mL Serum Total Protein 6.5 (6.4-8.9) g/dL Albumin 3.6 (3.5-5.7) g/dL Globulin 2.9 (2.4-3.5) g/dL Albumin/Globulin Ratio 1.2 (1.1-2.2) Urine Color (Yellow) Urine Clarity (Clear) Urine pH (5.0-8.0) pH Units Ur Specific [place] (1.010-1.025) Urine Protein (Neg-Trace) mg/dL Urine Glucose (UA) (Normal) mg/dL Urine Ketones (Negative) mg/dL Urine Blood (Negative) Urine Nitrite (Negative) Urine Bilirubin (Negative) Urine Urobilinogen (Normal) mg/dL Ur Leukocyte Esterase (Negative) Urine Microscopic RBC (0-3) per hpf Urine Microscopic WBC (0-3) per hpf Ur Squamous Epith Cells (None-Few) per lpf Urine Bacteria (None-Few) per hpf Hyaline Casts (None-Few) per lpf Ur Culture Indicated? (NO) - Radiology Data Radiology results reviewed: Yes I reviewed the patient's radiology results. - EKG Data EKG #1 EKG attestation: Yes I reviewed and interpreted this EKG. EKG shows normal: sinus rhythm Rate: tachycardia Rhythm: NSR Interpretation: nonspecific ST-T wave changes Attestation Statement - Attestation Attestation: I, Adonay Hinton MD, personally evaluated this patient and discussed their management with the resident physician. I reviewed the residents note and agree with the documented findings, medical decision making, and plan of care. 87 year old male presents to the Emergency Department with a complaint of generalized weakness today. Some nonproductive cough and shortness of breath. Subjective fever. Chills. Body aches. History of pneumonia 1 month ago with same symptoms. On examination patient is a well developed well nourished elderly male in no acute distress. He is alert and oriented X 3 but seems mildly confused. There is no cyanosis or diaphoresis. Breath sounds are clear and equal bilaterally with no rales or wheezes noted. Heart regular with mild tachycardia. Abdomen soft and nontender with normal bowel sounds. No gross focal neurological deficits. Labs reviewed. Positive for influenza type A. No acute abnormality on CXR. The hospitalist, Dr. Majano, was consulted and accepted admission of the patient.
[2017-12-14 22:25] LABS: Bilirubin,Urine Negative (Negative); Blood,Urine Trace (Negative); Clarity,Urine Clear (Clear); Color,Urine Yellow (Yellow); Glucose,Urine (UA) Normal (Normal); Ketones,Urine Negative (Negative); Leukocyte Esterase,Urine Negative (Negative); Nitrite,Urine Negative (Negative); Protein,Urine 30 mg/dL (Neg-Trace); Specific Gravity,Urine 1.011 (1.010-1.025); Urobilinogen,Urine Normal (Normal)
[2017-12-14 22:27] LABS: Bacteria,Urine None Seen per hpf (None-Few); Hyaline Casts,Urine None Seen per lpf (None-Few); RBC,Urine 0-3 per hpf (0-3); Squamous Epithelial Cell,Urine Few per lpf (None-Few); WBC,Urine 0-3 per hpf (0-3)
[2017-12-14 22:41] LABS: Basophils % 0.4 %; Eosinophils # 0.1 K/mcL (0.0-0.6); Eosinophils % 0.9 %; Hematocrit 36.7 % (37.5-50.1); Hemoglobin 12.6 g/dL (12.9-16.9); Immature Granulocytes % 0.4 % (0-4); Lymphocytes # 1.3 K/mcL (0.6-4.6); Lymphocytes % 15.8 %; Mean Corpuscular HGB Conc 34.3 g/dL (31.6-35.5); Mean Corpuscular Hemoglobin 32.6 pg (28.0-33.3); Mean Corpuscular Volume 94.8 fL (83.0-100.0); Mean Platelet Volume 9.4 fL (9.4-12.4); Monocytes # 0.8 K/mcL (0.0-1.3); Neutrophils # 5.8 K/mcL (1.6-8.9); Platelet Count 209 K/mcL (140-400); Red Blood Count 3.87 M/mcL (4.19-5.50); Red Cell Distribution Width 13.6 % (11.5-14.5); Segmented Neutrophils % 72.5 %
[2017-12-14 23:06] LABS: Prothrombin Time 11.1 Seconds (9.4-12.1)
[2017-12-14 23:08] LABS: Activated Partial Thrombo Time 26.7 Seconds (26.0-36.0)
[2017-12-14 23:43] LABS: Albumin 3.6 g/dL (3.5-5.7); Albumin/Globulin Ratio 1.2 (1.1-2.2); Bilirubin,Direct 0.1 mg/dL (0.0-0.2); Bilirubin,Indirect 0.7 mg/dL (0.0-1.2); Bilirubin,Total 0.8 mg/dL (0.3-1.0); Calcium 8.6 mg/dL (8.6-10.3); Globulin 2.9 g/dL (2.4-3.5); Magnesium 1.4 mg/dL (1.6-2.6); Phosphorous 2.9 mg/dL (2.7-4.5); Potassium 3.7 mEq/L (3.5-5.1); Total Protein 6.5 g/dL (6.4-8.9)
--- NOTE | 2017-12-15 03:17 | Discharge Summary ---
Date of Encounter: 12/15/17 - Discharge Medications Home Medications: Isosorbide MONOnitrate (24 HR) [Imdur] 30 mg PO DAILY 05/03/16 [History] Tamsulosin [Flomax] 0.4 mg PO DAILY PRN 06/20/17 [History] Loperamide [Imodium] 2 mg PO DAILY PRN 09/16/17 [History] Abiraterone Acetate [Zytiga] 500 mg PO DAILY #60 tablet 10/07/17 [Rx] Cholecalciferol (D-3) [Vitamin D] 1,000 unit PO DAILY 10/07/17 [History] predniSONE [PredniSONE] 5 mg PO BID #60 tablet 10/07/17 [Rx] Allergies/Adverse Reactions: 3 Allergy/AdvReac Type Severity Reaction Status Date / Time aspirin Allergy Unknown Diarrhea Verified 12/03/17 11:24 Penicillins Allergy Unknown Rash Verified 12/03/17 11:24 Date of admission: 12/15/17 00:39 Primary care physician: Leslie Cast - Patient Status Condition: Good - Discharge Instructions Follow Up With: Leslie Mas MD [Primary Care Provider] - Hospital course: Mr. Aviles is a 87 year old male - Time Spent with Patient Total time spent providing and/or coordinating discharge services: - Constitutional Vitals: Temp Pulse Resp BP Pulse Ox 100.7 F H 108 18 121/82 93 12/14/17 21:35 12/14/17 23:30 12/15/17 00:55 12/15/17 00:55 12/14/17 23:30
--- NOTE | 2017-12-15 03:52 | Internal Med History&Physical ---
<Nunu Marr - Last Filed: 12/15/17 06:12> Date of Encounter: 12/15/17 Time of Encounter: 03:50 Assessment and Plan (1) Influenza Current visit: Yes Status: Acute Nasal swab positive for influenza A. Tmax 100.7 on presentation, currently afebrile. Mild, bilateral wheezing on exam--duonebs q6h PRN. Tamiflu 75mg PO BID x 5 days. (2) Generalized weakness Current visit: Yes Status: Acute Possibly due to combination of recent illness with pneumonia, influenza A, and decreased intake over last couple of days. Fluid replacement with 1L NS bolus in ED. Fall precautions. (3) Hyponatremia Current visit: Yes Status: Acute Sodium 130 on presentation, received 1L NS bolus in ED. Likely d/t poor oral intake. Recheck sodium on morning BMP. (4) CKD (chronic kidney disease) stage 3, GFR 30-59 ml/min Current visit: Yes Status: Chronic Known h/o CKD, is pt of Dr. Greenfield. Creatinine on admission 2.06, which is within pt's baseline. Will avoid nephrotoxins and/or renally dose meds when possible. (5) Pulmonary nodule seen on imaging study Current visit: Yes Status: Acute CXR done in the emergency department revealed no acute cardiopulmonary process, but a 9 mm pulmonary nodule was found within the left mid lung--per radiology impression, nodule appears to be new since 11/22/2016 CT chest and nonemergent follow-up chest CT may be warranted given patient's history of prostate cancer. (6) DVT prophylaxis Current visit: Yes Status: Acute Heparin 5,000 units SubQ q12h Internal Medicine - H&P: HPI Chief complaint: weakness History of present illness: Mr. Aviles is a 87 year old male with PMH metastatic prostate cancer, colon cancer, and CKD stage III who presented with c/o generalized weakness and slightly productive cough. Admits to recent fevers, chills, nausea, sore throat , nasal congestion, runny nose, and poor appetite; patient denies shortness of breath, abdominal pain, chest pain, nausea, vomiting, diarrhea, constipation. Per ED note, patient was reportedly saturating oxygen in low 90's while being transported by EMS. Patient was slightly hypoxic in the ED and is now saturating well with oxygen by nasal cannula. Patient has no reported h/o respiratory problems. Influenza A (+) on nasal swab. Tmax 100.7 upon admission, now afebrile. Patient was admitted last month for community-acquired pneumonia and states he still does not feel like he is back to his normal self in terms of energy. Past Med Surg Social Fam HX - Past Medical History Medical history: cancer, hypertension, renal disease, other Psychiatric history: no psych history - Past Surgical History Surgical History: colectomy - Social History Smoking Status: Former smoker Smokeless Tobacco Status: No Alcohol use: heavy, recent Drug use: none - Family History Father Family Member Ethnicity: Non- Living Status: Hx Family Cancer: Yes (Basal cell skin cancer) Mother Family Member Ethnicity: Non- Living Status: Hx Family Cancer: Yes (Colon) Sister Family Member Ethnicity: Non- Living Status: Hx Family Cardiac Disorders: Yes ([place]) Internal Medicine - H&P: Meds Isosorbide MONOnitrate (24 HR) [Imdur] 30 mg PO DAILY 05/03/16 [History] Tamsulosin [Flomax] 0.4 mg PO DAILY PRN 06/20/17 [History] Loperamide [Imodium] 2 mg PO DAILY PRN 09/16/17 [History] Abiraterone Acetate [Zytiga] 500 mg PO DAILY #60 tablet 10/07/17 [Rx] Cholecalciferol (D-3) [Vitamin D] 1,000 unit PO DAILY 10/07/17 [History] predniSONE [PredniSONE] 5 mg PO BID #60 tablet 10/07/17 [Rx] 3 Allergy/AdvReac Type Severity Reaction Status Date / Time aspirin Allergy Unknown Diarrhea Verified 12/03/17 11:24 Penicillins Allergy Unknown Rash Verified 12/03/17 11:24 All Systems PM: A 10-system review of systems was performed and is negative for pertinent findings except as documented above in the HPI. - Constitutional Vitals: Temp Pulse Resp BP Pulse Ox 100.7 F H 108 18 121/82 93 12/14/17 21:35 12/14/17 23:30 12/15/17 00:55 12/15/17 00:55 12/14/17 23:30 General appearance: Present: cooperative, A&O X 3, no acute distress, answers questions appropriately - Head Head exam: Present: atraumatic, normocephalic - Eye Eye exam: Present: EOMI, normal appearance - Neck Neck exam general surgery: Present: full ROM, normal inspection, supple - Respiratory Respiratory exam: Present: CTAB, wheezes (bilateral bases). Absent: rales, respiratory distress, rhonchi - Cardiovascular Cardiovascular exam: Present: RRR, +S1, +S2. Absent: diastolic murmur, systolic murmur - GI/Abdominal GI/Abdominal exam: Present: normal bowel sounds, soft. Absent: distended - Extremities Exam Extremities exam: Present: warm. Absent: pedal edema, tenderness Additional comments: DP pulses 2+ - Neurological Exam Neurological exam: Present: alert, oriented X3, no focal deficits. Absent: facial droop, speech deficit Internal Med - H&P Results - Labs CBC & Chem 7: 12/14/17 22:33 12/14/17 22:33 <Germán Majano P - Last Filed: 12/15/17 06:57> Date of Encounter: 12/15/17 Internal Medicine - H&P: HPI History of present illness: Mr. Aviles is a 87 year old male All Systems PM: A 10-system review of systems was performed and is negative for pertinent findings except as documented above in the HPI. - Constitutional Vitals: Temp Pulse Resp BP Pulse Ox 100.7 F H 108 16 156/84 97 12/14/17 21:35 12/14/17 23:30 12/15/17 01:21 12/15/17 01:21 12/15/17 01:21 Internal Med - H&P Results - Labs CBC & Chem 7: 12/14/17 22:33 12/14/17 22:33 - Attending Attestation I examined this patient and my medical decision-making was reviewed with the Resident Physician. I agree with the documented findings, disposition and treatment plan as described except to the extent set forth below. agree with assessment and plan
[2017-12-15] MEDS ORDERED: Naloxone 0.4 MG/ML INJ IVP PRN (04:01)
[2017-12-15] MEDS ORDERED: Ipratropium/Albuterol Neb 3 ML IH ONE (04:17)
[2017-12-15] MEDS ORDERED: Ondansetron ODT 4 MG TAB.RAPDIS SL PRN (04:41)
[2017-12-15] MEDS ORDERED: Ipratropium/Albuterol Neb 3 ML IH PRN (08:00)
[2017-12-15] MEDS ORDERED: levoFLOXacin 500 MG TABLET PO SCH (09:00)
[2017-12-15] MEDS ORDERED: ABIRATERONE ACETATE 500 MG PO SCH ×2 (11:00→21:00)
--- NOTE | 2017-12-15 13:37 | Event Note ---
Date of Encounter: 12/15/17 Time of Encounter: 11:30 Patient was seen and examined. Admitted overnight with the flu and hyponatremia. His received some IV fluid bolus in the ED. We will repeat labs to check for hyponatremia. Hold off on restarting fluids until labs are back. Continue Tamiflu. Wean oxygen as tolerated. Continue nebulizers.
[2017-12-15 14:14] LABS: Basophils % 0.4 %; Eosinophils # 0.1 K/mcL (0.0-0.6); Eosinophils % 1.2 %; Hematocrit 33.1 % (37.5-50.1); Hemoglobin 11.4 g/dL (12.9-16.9); Immature Granulocytes % 0.3 % (0-4); Lymphocytes # 1.6 K/mcL (0.6-4.6); Lymphocytes % 17.6 %; Mean Corpuscular HGB Conc 34.4 g/dL (31.6-35.5); Mean Corpuscular Hemoglobin 32.5 pg (28.0-33.3); Mean Corpuscular Volume 94.3 fL (83.0-100.0); Mean Platelet Volume 9.5 fL (9.4-12.4); Monocytes # 1.3 K/mcL (0.0-1.3); Monocytes % 14.1 %; Platelet Count 183 K/mcL (140-400); Red Blood Count 3.51 M/mcL (4.19-5.50); Segmented Neutrophils % 66.4 %
[2017-12-15 14:32] LABS: Calcium 7.9 mg/dL (8.6-10.3); Potassium 3.6 mEq/L (3.5-5.1)
[2017-12-15] MEDS: Isosorbide MONOnitrate (24 HR) 30 MG TAB.ER.24H PO SCH (15:01)
[2017-12-15] MEDS: predniSONE 5 MG TABLET PO SCH ×2 (15:02→20:31)
[2017-12-15] MEDS: 0.9 % Sodium Chloride 1,000 ML IVC SCH (17:16)
[2017-12-16 05:05] VITALS: BP 122/67
[2017-12-16] MEDS: 0.9 % Sodium Chloride 1,000 ML IVC SCH (05:29)
[2017-12-16 05:50] LABS: Hemoglobin 11.5 g/dL (12.9-16.9); Mean Corpuscular HGB Conc 33.8 g/dL (31.6-35.5); Mean Corpuscular Hemoglobin 31.9 pg (28.0-33.3); Mean Corpuscular Volume 94.2 fL (83.0-100.0); Platelet Count 197 K/mcL (140-400); Red Blood Count 3.61 M/mcL (4.19-5.50); Red Cell Distribution Width 13.6 % (11.5-14.5)
[2017-12-16 06:05] LABS: Calcium 7.8 mg/dL (8.6-10.3); Potassium 4.3 mEq/L (3.5-5.1)
[2017-12-16] MEDS: Isosorbide MONOnitrate (24 HR) 30 MG TAB.ER.24H PO SCH (07:46)
[2017-12-16] MEDS: predniSONE 5 MG TABLET PO SCH (07:46)
[2017-12-16] MEDS ORDERED: Cholecalciferol (D-3) 1,000 UNIT TABLET PO SCH (09:00)
--- NOTE | 2017-12-16 09:37 | Discharge Summary ---
Date of Encounter: 12/16/17 Time of Encounter: 09:34 - Discharge Diagnosis (1) Hypoxemia Priority: Primary Status: Acute (2) Generalized weakness Priority: Primary Status: Acute (3) Hyponatremia Priority: Primary Status: Acute (4) Influenza Priority: Primary Status: Acute (5) CKD (chronic kidney disease) stage 3, GFR 30-59 ml/min Priority: Secondary Status: Chronic (6) Adrenal insufficiency Priority: Secondary Status: Acute (7) Prostate CA Priority: Secondary Status: Chronic (8) History of colon cancer Priority: Secondary Status: Resolved - Discharge Medications Prescriptions: Oseltamivir Phosphate [Tamiflu] 30 mg PO BID #6 capsule Home Medications: Isosorbide MONOnitrate (24 HR) [Imdur] 30 mg PO DAILY 05/03/16 [History] Tamsulosin [Flomax] 0.4 mg PO DAILY 06/20/17 [History] Loperamide [Imodium] 2 mg PO DAILY PRN 09/16/17 [History] Abiraterone Acetate [Zytiga] 500 mg PO DAILY #60 tablet 10/07/17 [Rx] Cholecalciferol (D-3) [Vitamin D] 1,000 unit PO DAILY 10/07/17 [History] predniSONE [PredniSONE] 5 mg PO BID #60 tablet 10/07/17 [Rx] Oseltamivir Phosphate [Tamiflu] 30 mg PO BID #6 capsule 12/16/17 [Rx] Allergies/Adverse Reactions: 3 Allergy/AdvReac Type Severity Reaction Status Date / Time aspirin Allergy Unknown Diarrhea Verified 12/03/17 11:24 Penicillins Allergy Unknown Rash Verified 12/03/17 11:24 Date of admission: 12/15/17 00:39 Primary care physician: Leslie Cast - Patient Status Disposition: Home, Self-Care Condition: Fair Overall status at discharge: patient is progressing back to baseline - Discharge Instructions Instructions: Oseltamivir (By mouth) Follow Up With: Leslie Mas MD [Primary Care Provider] - (Patient will need to call tomorrow for follow up d/t it being .) Additional Instructions: There was a pulmonary nodule seen on the chest xray. We recommend a CT chest to be done by PCP - Diet and Activity Activity: increase activity as tolerated Diet: regular diet Hospital course: Mr. Aviles is a 87 year old male with PMH metastatic prostate cancer, colon cancer, and CKD stage III who presented with c/o generalized weakness and slightly productive cough. Admits to recent fevers, chills, nausea, sore throat , nasal congestion, runny nose, and poor appetite. Per ED note, patient was reportedly saturating oxygen in the low 90's while being transported by EMS. Patient was slightly hypoxic . Influenza A (+) came back positive. He was admitted and initially put on Tamiflu as well as Levaquin. I stopped Levaquin on discharge as he had no signs of pneumonia. With continued him on Tamiflu. The patient did require oxygen on home or to evaluation. He was discharged to finish Tamiflu and was also set up with oxygen at discharge. Patient of note was admitted last month for community-acquired pneumonia . Please note that the patient had a chest x-ray that showed no significant changes however there was a 9 mm pulmonary nodule within the left mid lung. This is new since October 2016. He is recommended and nonemergent follow-up chest CT as an outpatient. - Time Spent with Patient Total time spent providing and/or coordinating discharge services: Greater than 30 minutes - Constitutional Vitals: Temp Pulse Resp BP Pulse Ox 97.5 F L 66 12 122/67 99 12/16/17 05:03 12/16/17 05:03 12/16/17 05:03 12/16/17 05:03 12/16/17 05:03 General appearance: Present: cooperative, A&O X 3, no acute distress, answers questions appropriately Exam: GEN: NAD CVS: RRR. S1, S2, No m/r/g RESP: CTAB ABD: Soft, NT, ND, +BS EXT: No edema. 2+ DP. No rashes NEURO: Nonfocal
[2017-12-16] MEDS ORDERED: Oseltamivir Phosphate 30 MG CAPSULE PO SCH (21:00)
--- NOTE | 2017-12-20 09:04 | Electrocardiograph Report ---
[place] [id number] Test Date: 2017-12-14 Pat Name: Rajeev Aviles Department: [id number] Room: 2A38 Gender: M Field Associate: JOSS : [id number] Requested By: Dov Borrego Order Number: [id number] Reading MD: Sven Aponte DO Measurements Intervals [place] Rate: 108 P: 20 AR: 160 QRS: -19 QRSD: 72 T: 29 QT: 303 QTc: 366 Interpretive Statements SINUS TACHYCARDIA WITH OCCASIONAL VENTRICULAR PREMATURE COMPLEXES POSSIBLE LEFT ATRIAL ENLARGEMENT Electronically Signed On 12-20-2017 9:03:19 EST by Sven Aponte DO
== END 2017-12-16 14:14 | disposition home or self-care (01) ==
LOC: EMEROO 21:33 → 2ANU 21:33
PROVIDERS: ADMIT Internal Medicine; ATTEND Internal Medicine